=== PATIENT | female | born 1970 | race African-American/Black ===

== ENCOUNTER 2021-02-05 11:34 | Observation (INO) | payer OTHER, SELFPAY ==
[2021-02-05] VITALS (31 sets, daily range): BP systolic 109–182; BP diastolic 68–114; PULSE 73–96; RESP 12–23; TEMP 35.8–36.8; O2SAT 97–100; BMI 25.7
--- NOTE | ~2021-02-05 | XR_ITS ---
EXAMINATION: XR chest 2V DATE: 02/05/2021 12:16 INDICATION: Chest pain TECHNIQUE: PA and lateral views of the chest are obtained. COMPARISON: 07/29/2018 FINDINGS: The lungs are free of acute opacities. There is no pleural effusion or pneumothorax. The ca rdiomediastinal silhouette is normal. There is mild thoracic spondylosis. IMPRESSION: 1. No acute cardiopulmonary abnormality. Reviewed, dictated and finalized at location A. ECTIONAL FACILITY PSYCHIATRIST
--- NOTE | ~2021-02-05 | CT_ITS ---
EXAMINATION: CT brain wo con EXAM DATE: 02/05/2021 12:46 INDICATION: Left arm paresthesias. Hypertension and headache. TECHNIQUE: Spiral CT of the head was performed without contrast. Axial, coronal and sagittal images were reviewed. The dose-length product (DLP) for this examination was 681.00 mGy-cm. The exposure w as tailored according to patient size, and iterative reconstruction (ASIR) was used as additional dos e reduction technique. There is no prior study for comparison. FINDINGS: There is no acute intraparenchymal hemorrhage. No evidence of intraparenchymal brain mass lesion. No evidence of acute infarction. There is no mass effect or midline shift. The ventricles are normal in size. There are no extra-axial collections. There are no acute calvarial fractures. T he orbits are unremarkable. Soft tissue is unremarkable. The visualized sinuses and mastoid air sharan ls are well aerated. IMPRESSION: No acute intracranial findings. Reviewed, dictated and finalized at location B. FACTURING ASSOCIATE
--- NOTE | ~2021-02-05 | US_ITS ---
EXAMINATION: US retroperitoneal duplex ltd DATE: 02/06/2021 10:25 INDICATION: Hypertension. TECHNIQUE: Multiple grayscale, color Doppler, and pulsed Doppler images of the kidneys and renal jeri jamarcus were obtained. COMPARISON: None. FINDINGS: The aorta peak systolic velocity is 67 cm/s. The right renal artery peak systolic velocity is 58 cm/s in the proximal segment, 57 cm/s in the mid segment, and 60 cm/s in the distal segment. The left killian al artery peak systolic velocity is 57 cm/s in the proximal segment, 49 cm/s in the mid segment, and 50 cm/s in the distal segment. IMPRESSION: 1. No Doppler evidence of renal artery stenosis. Reviewed, dictated and finalized at location A. THESIOLOGY TECHNOLOGIST
--- NOTE | ~2021-02-05 | US_ITS ---
EXAMINATION: US renal BI DATE: 02/06/2021 10:25 INDICATION: Renal failure. TECHNIQUE: Multiple ultrasound grayscale images of the kidneys were obtained. COMPARISON: None. FINDINGS: The right kidney measures 10.3 x 5.4 x 5.6 cm. The left kidney measures 9.4 x 5.3 x 5.0 cm. The kidne ys demonstrate normal parenchymal echogenicity. There is no hydronephrosis. The bladder is normal. IMPRESSION: 1. Normal kidneys. No hydronephrosis. Reviewed, dictated and finalized at location A. L AIDE
--- NOTE | 2021-02-05 12:05 | ECG_ITS ---
Measurements Intervals [place] Rate: 96 P: 18 WV: 136 QRS: -72 QRSD: 89 T: -18 QT: 364 QTc: 461 Interpretive Statements SINUS RHYTHM INCOMPLETE RIGHT BUNDLE BRANCH BLOCK LEFT ANTERIOR FASCICULAR BLOCK T WAVE ABNORMALITY IN INFERIOR LEADS- CONSIDER ISCHEMIA BASELINE ARTIFACT- II, III, V6 ABNORMAL ECG Electronically Signed On 02-05-2021 12:34:28 PRINTER SLOTTER HELPER by Gary Ruiz D.O.
--- NOTE | 2021-02-05 12:38 | ED.CHESTPAIN ---
HPI - Chest Pain General Chief Complaint: Chest Pain Stated Complaint: CP ELEVATED BP Time Seen by Provider: 02/05/21 12:04 Source: patient Mode of arrival: ambulatory Limitations: no limitations History of Present Illness HPI narrative: This is a 50 year old female that presents to the ER for chest pain that started about an hour prior to arrival. Reports she works in a large [employer]. Reports she had to do a lot of walking this morning. Reports she noted that her blood pressures have been elevated today. She was watching this and they continued to climb. She started to note sharp chest pain that last about 20 minutes and was relieved without intervention. She was feeling a little short of breath. Also reports she had some paresthesias in the left arm which is now resolved as well. She is on several different antihypertensives. She took all of them this morning. Denies fever, cough, or lower extremity edema. Related Data Home Medications Medication Instructions Recorded Confirmed amlodipine 5 mg PO DAILY 02/05/21 aspirin [Aspir-81] 81 mg PO DAILY 02/05/21 atorvastatin 20 mg PO DAILY 02/05/21 carvedilol 25 mg PO BID 02/05/21 cholecalciferol (vitamin D3) 125 mcg PO DAILY 02/05/21 [Vitamin D3] clonidine HCl 0.2 mg PO BID 02/05/21 dulaglutide [Trulicity] 1.5 mg SUBCUT WEEKLY 02/05/21 esomeprazole magnesium 40 mg PO DAILY 02/05/21 hydrochlorothiazide 12.5 mg PO DAILY 02/05/21 linaclotide [Linzess] 290 mcg PO DAILY 02/05/21 lisinopril 40 mg PO DAILY 02/05/21 potassium chloride [KCl-20] 20 meq PO BID 02/05/21 spironolactone 25 mg PO BID 02/05/21 Allergies Allergy/AdvReac Type Severity Reaction Status Date / Time peanut Allergy Severe anaphylaxis Verified 02/05/21 11:47 Review of Systems Review of Systems: CONSTITUTIONAL: Denies fever CARDIOVASCULAR: Reports chest pain. Denies edema. RESPIRATORY: Reports dyspnea. Denies cough NEUROLOGIC: Denies headache, numbness, or weakness. All systems reviewed & are unremarkable except as noted in HPI and below PMFSH Past Medical History Medical History (Updated 02/05/21 @ 14:45 by Zita James PA-C) History of diabetes mellitus History of hyperlipidemia History of hypertension Social History Social History (Updated 02/05/21 @ 12:43 by Zita James PA-C) Smoking status: Never smoker Exam Narrative: GENERAL: Well-appearing, well-nourished, and in no acute distress. HEAD: Normocephalic, atraumatic. EYES: PERRLA and EOMI. ENT: Nares clear, no rhinorrhea or epistaxis. Mucous membranes moist. Oropharynx without tonsillar hypertrophy exudate or other lesions. Bilateral TMs pearly tamez non-bulging NECK: Supple. No adenopathy or masses. No carotid bruits or JVD CHEST: Clear to auscultation. No respiratory distress. No wheezes rales or rhonchi HEART: Regular rate and rhythm. No murmur heard. Normal peripheral pulses. EXTREMITIES: Normal range of motion. No edema. Strength equal in bilateral upper and lower extremities (5/5) SKIN: Warm, dry, no rash. NEURO: No focal deficits. Alert and oriented x3. Cranial nerves II through XII grossly PSYCH: Normal mood and affect Course Consultations Consultation #1: Spoke with hospitalist about patient and work-up who accepts admission Date: 02/05/21 Time: 14:30 Vital Signs Vital signs: Vital Signs Temperature 98.3 F 02/05/21 11:37 Pulse Rate 90 02/05/21 11:37 Respiratory Rate 20 02/05/21 11:37 Blood Pressure 182/114 H 02/05/21 11:37 Pulse Oximetry 100 02/05/21 11:37 Temperature 98.3 F 02/05/21 11:37 Pulse Rate 94 02/05/21 14:01 Respiratory Rate 15 02/05/21 14:01 Blood Pressure 139/103 H 02/05/21 14:00 Pulse Oximetry 99 02/05/21 14:01 MDM - Chest Pain MDM Narrative Medical decision making narrative: Patient presents to the ER for elevated blood pressure and chest pain. Had an episode of sharp chest pain this morning that was relieved before arrival to the ED. Also reportin
--- NOTE | 2021-02-05 12:44 | PC.NURSE ---
pt. in radiology unable to draw blood.
[2021-02-05 13:05] LABS: Basophils Absolute Auto 0.1 K/mm3 (0.0-0.1); Basophils Percent Auto 0.6 % (0.2-1.2); Eosinophils Absolute Auto 0.1 K/mm3 (0-0.3); Eosinophils Percent Auto 1.5 % (0-4.4); Hematocrit 40.3 % (37.0-47.0); Hemoglobin 13.5 g/dL (12.0-15.0); Immature Granulocyte Absolute 0.02 K/mm3 (0.00-0.031); Immature Granulocyte Percent A 0.2 % (0-0.5); Lymphocytes Absolute Auto 1.61 K/mm3 (0.9-3.2); Lymphocytes Percent Auto 18.5 % (18.3-44.2); Mean Corpuscular HGB Conc 33.5 g/dl (32-36); Mean Corpuscular Hemoglobin 30.5 pg (26-34); Mean Platelet Volume 10.5 fl (7.4-10.4); Monocytes Absolute Auto 0.5 K/mm3 (0.1-0.6); Monocytes Percent Auto 5.6 % (2.6-8.5); Neutrophils Absolute Auto 6.4 K/mm3 (1.3-6.7); Neutrophils Percent Auto 73.6 % (45.5-73.1); Platelet Count Result 210 k/mm3 (150-375); Red Blood Count 4.43 M/mm3 (4.2-5.4); Red Cell Distribution Width 11.7 % (11.5-14.5); White Blood Count 8.7 K/mm3 (4.5-10.0)
[2021-02-05 13:17] LABS: Alanine Aminotransferase 18 U/L (4-35); Albumin Level 5.2 g/dL (3.5-5.1); Alkaline Phosphatase 100 U/L (38-126); Anion Gap 15 mmol/L (8-16); Aspartate Amino Transferase 22 U/L (14-36); Bilirubin,Total 1.6 mg/dL (0.2-1.3); Blood Urea Nitrogen 27 mg/dL (7-17); Carbon Dioxide 29 mmol/L (22-30); Chloride 98 mmol/L (98-107); Estimated CRCL calculation 39 ml/min; Estimated Glomerular Filt Rate 52; Glucose 126 mg/dL (65-110); Lipase 62 U/L (23-300); Potassium 3.1 mmol/L (3.4-5.0); Sodium 142 mmol/L (137-145)
[2021-02-05 13:19] LABS: INR 0.9; Partial Thromboplastin Time 32.1 SECONDS (22.3-36.8); Prothrombin Time 12.5 Seconds (11.1-14.7)
[2021-02-05 13:28] LABS: Troponin I < 0.012 ng/mL (0.000-0.034)
[2021-02-05] MEDS: hydrALAZINE HCL 20 MG/ML VIAL 10 MG IV PUSH (13:54)
[2021-02-05] MEDS: POTASSIUM CHLORIDE 20 MEQ TABLET 40 MEQ PO (13:55)
[2021-02-05] MEDS: SODIUM CHLORIDE 0.9% IV 500 ML 999 ML IV CONT (13:55)
[2021-02-05] MEDS: ACETAMINOPHEN 500 MG TABLET 1000 MG PO (14:34)
[2021-02-05 15:40] LABS: Glucose Point of Care 103 mg/dl (65-105)
--- NOTE | 2021-02-05 16:28 | PC.NURSE ---
This patient, Mariangel Bazzi, was admitted to IMU Room 205-02. Patient/family oriented to hospital policies and general routines including ID bracelet, bed and alarms, visiting hours, pain management, procedures, bathroom and other care routines, personal items, smoking policy, room service/diet, and visiting hours. Information on how to activate the Rapid Response Team has been discussed. Patient/Family are encouraged to report perceived risks to care and to ask questions if they do not understand what they are told or what they should do.
[2021-02-05 16:47] LABS: Troponin I < 0.012 ng/mL (0.000-0.034)
[2021-02-05 17:09] LABS: Glucose Point of Care 139 mg/dl (65-105)
--- NOTE | 2021-02-05 18:30 | PM.IMHP ---
H&P: HPI History of Present Illness Date/Time: 02/05/21 18:30 Chief Complaint: Chest pain and elevated blood pressure. Narrative: This is a very pleasant 50-year-old female with hypertension, hyperlipidemia, and type 2 diabetes mellitus who presented to the emergency department earlier today via EMS from her place of employment for evaluation of chest pain and elevated blood pressure. Her blood pressures have been difficult to control and 1 point time they thought perhaps she had some sort of renal mass leading to secondary hypertension however that was removed and found to be benign. She is currently on 5 different antihypertensives and reports that her blood pressures are typically in the 140s systolic. She is diligent about monitoring her blood pressures and when they were elevated she typically gets a headache. When she checked her blood pressure this morning was 140/86 and she was feeling okay. Not long after arriving to work she felt as though her vision was blurry and notes that her blood pressure was 163/117 at that time. As the day progressed she developed a sharp pain in the mid chest region with associated aching and tingling in the left arm and at that time her blood pressure was 208/134. She received hydralazine 10 mg IV x1 in the ER and her blood pressures have since normalized. Aside from mild headache that she believes may be due to the precipitous drop in her blood pressure, she has no current complaints. She is not actively having chest pain. She also denies blurry vision, vertigo, focal weakness, paresthesias, shortness of breath, and edema. She has no history of coronary artery disease and reports having a normal stress test last year and an unremarkable cardiac catheterization several years ago. Review of Systems Review of Systems: Twelve systems were reviewed with pertinent positives and negatives as per HPI. No recent cold or flu symptoms. She denies vertigo. No nausea or vomiting. She suffers from constipation and is on Linzess. Except as documented, all other systems were reviewed and are negative. [facility] Past Medical History Medical History (Updated 02/05/21 @ 22:31 by Velma Ramos PA-C) Chronic kidney disease, stage 3 Hyperlipidemia Hypertension Type 2 diabetes mellitus Recent hemoglobin A1c was 7.1% per patient report. Surgical History Surgical History (Updated 02/05/21 @ 22:28 by Velma Ramos PA-C) History of section History of endometrial ablation History of partial nephrectomy Resection of a benign tumor. Family History Family History (Updated 02/05/21 @ 22:29 by Velma Ramos PA-C) Father Chronic obstructive pulmonary disease Diabetes mellitus Heart disease Mother Chronic obstructive pulmonary disease Diabetes mellitus Heart disease Sibling , at the age of 32. Congestive heart failure Diabetes mellitus Hypertension Social History Social History (Updated 02/05/21 @ 22:30 by Velma Ramos PA-C) Social History: The patient lives in [place] with her . They have 2 daughters, 1 who still lives at home. She is a lifelong nonsmoker. No alcohol or illicit substance abuse. She designates her King Bazzi as her surrogate decision maker and she wishes to be a full code. Meds Home Medications and Allergies Home Medications Medication Instructions Recorded Confirmed Type amlodipine 5 mg PO DAILY 02/05/21 02/05/21 History aspirin [Aspir-81] 81 mg PO DAILY 02/05/21 02/05/21 History atorvastatin 20 mg PO DAILY 02/05/21 02/05/21 History carvedilol 25 mg PO BID 02/05/21 02/05/21 History cholecalciferol (vitamin D3) 125 mcg PO DAILY 02/05/21 02/05/21 History [Vitamin D3] clonidine HCl 0.2 mg PO BID 02/05/21 02/05/21 History dapagliflozin-metformin [Xigduo XR] 1 tablet PO BID 02/05/21 02/05/21 History dulaglutide [Trulicity] 1.5 mg SUBCUT WEEKLY 02/05/21 02/05/21 History esomeprazole magnesium 40 mg PO DAILY
[2021-02-05 18:43] LABS: Troponin I < 0.012 ng/mL (0.000-0.034)
[2021-02-05 20:57] LABS: Glucose Point of Care 139 mg/dl (65-105)
[2021-02-05 23:50] LABS: Magnesium 1.7 mg/dL (1.6-2.3); Phosphorus 3.5 mg/dL (2.5-4.5)
[2021-02-05 23:54] LABS: Hemoglobin A1C 7.8 % (<5.7)
[2021-02-06] VITALS (11 sets, daily range): BP systolic 127–149; BP diastolic 81–95; PULSE 69–97; RESP 12–20; TEMP 36.4–37.1; O2SAT 98–100
[2021-02-06 07:50] LABS: Parathyroid Intact 33.8 pg/mL (7.5-53.5)
[2021-02-06 08:07] LABS: Vitamin D 25 Hydroxy 80.4 ng/mL
[2021-02-06 08:40] LABS: Albumin Level 4.7 g/dL (3.5-5.1); Anion Gap 14 mmol/L (8-16); Blood Urea Nitrogen 24 mg/dL (7-17); Carbon Dioxide 25 mmol/L (22-30); Chloride 101 mmol/L (98-107); Estimated CRCL calculation 39 ml/min; Estimated Glomerular Filt Rate 52; Glucose 122 mg/dL (65-110); Magnesium 1.7 mg/dL (1.6-2.3); Phosphorus 3.3 mg/dL (2.5-4.5); Potassium 3.1 mmol/L (3.4-5.0); Sodium 140 mmol/L (137-145)
[2021-02-06] MEDS: ATORVASTATIN 20 MG TABLET PO (09:00)
[2021-02-06] MEDS: lisinopriL 20 MG TABLET 40 MG PO (09:00)
[2021-02-06] MEDS: SPIRONOLACTONE 25 MG TABLET PO ×2 (09:00→17:31)
[2021-02-06] MEDS: cloNIDine HCL 0.2 MG TABLET PO ×2 (09:00→17:32)
[2021-02-06] MEDS: PANTOPRAZOLE 40 MG TABLET PO (09:01)
[2021-02-06] MEDS: amLODIPine BESYLATE 5 MG TABLET PO (09:01)
[2021-02-06 09:02] LABS: Glucose Point of Care 114 mg/dl (65-105)
[2021-02-06] MEDS: ASPIRIN 81 MG ENTERIC TABLET PO (09:02)
[2021-02-06] MEDS: carvediloL 25 MG TABLET PO ×2 (09:02→17:35)
[2021-02-06] MEDS: POTASSIUM CHLORIDE 20 MEQ PACKET (FOR LIQUID) PO ×2 (12:15→17:32)
[2021-02-06 12:24] LABS: Glucose Point of Care 191 mg/dl (65-105)
[2021-02-06] MEDS: ACETAMINOPHEN 325 MG TABLET 650 MG PO (15:28)
--- NOTE | 2021-02-06 17:30 | PM.DS ---
DS: Admitting Diagnosis Discharge Date 02/06/21 Admitting Diagnosis Chest pain DS: Discharge Diagnosis Discharge Diagnosis (1) Hypertensive urgency: Code(s): I16.0 - Hypertensive urgency Status: Acute (2) Chest pain: Qualifiers: Chest pain type: unspecified Qualified Code(s): R07.9 - Chest pain, unspecified Code(s): R07.9 - Chest pain, unspecified Status: Acute (3) Hypokalemia: Code(s): E87.6 - Hypokalemia Status: Acute (4) Hypercalcemia: Code(s): E83.52 - Hypercalcemia Status: Acute (5) Chronic kidney disease, stage 3: Code(s): N18.30 - Chronic kidney disease, stage 3 unspecified Status: Acute (6) Hyperlipidemia: Code(s): E78.5 - Hyperlipidemia, unspecified Status: Acute (7) Type 2 diabetes mellitus: Code(s): E11.9 - Type 2 diabetes mellitus without complications Status: Acute DS: Summary Hospital Course Reason for hospitalization: 50yo female with HTN and DM here for chest pain. Please see H&P for details Hospital Course: Patient has a long history of elevated blood pressure. She has a history of what sounds like left adrenalectomy mass but pathology was benign. While at work prior to admission showed a blood pressure 208/134 with associated chest pain. She presented to the emergency room here and was found have a blood pressure 182/114. She was given 1 dose of hydralazine. She has been compliant with her home medications. CBC was unremarkable. Potassium was low at 3.1 with BUN 27 and creatinine 1.3. Calcium was 11. Creatinine 2 years ago was 1.1. She also had elevated protein albumin to suggest dehydration. She was treated with IV fluids. Hydrochlorothiazide was held. Calcium level normalized. iPTH was normal. Troponin was negative x3. EKG showed incomplete right bundle-branch block with T-wave abnormalities in inferior leads. We have an old EKG from July 2018 which also shows T-wave changes in inferior leads. Suspect this finding was chronic. She has had a recent cardiac stress test about a year ago which was normal. Echocardiogram showed EF of 70% with grade 1 diastolic dysfunction. No significant valvular disease. Chest x-ray shows clear. CT of the brain showed no acute intracranial findings. Arterial Doppler showed no renal artery stenosis. Renal ultrasound was normal. Patient was resumed on her home medications. Blood pressure became better controlled. Chest pain resolved. It was felt that she had demand ischemia from the HTN. She is to follow-up with her doctor tomorrow and as such was felt that patient could be discharged home safely with close follow-up. She overall did well to be discharged home on 02/06/21. Status at Discharge Cognitive/behavioral status at discharge: stable Time Spent with Patient Time attestation: Total time spent providing and/or coordinating discharge services: 35 minutes Time spent: Greater than 30 minutes Exam Narrative: AF 98.4 138/95 78 14 98% ra Gen - NARD Chest - CTA bilaterally, nml RR CV - RRR S1/S2 2/6 systolic murmur RUSB without radiation Abd - Soft, NT/ND, Positive BS Ext - No pedal edema Neuro - Alert and oriented. Nonfocal exam. Psych - Nml mood and affect Skin - Warm and dry DS: Data Data Completed and Pending Labs on day of discharge: Labs from last 24 hours 02/06/21 02/06/21 02/06/21 11:56 07:51 07:15 Sodium Potassium Chloride Carbon Dioxide Anion Gap BUN Creatinine Estim Creat Clear Calc Estimated GFR Glucose POC Capillary Glucose 191 H 114 H Hemoglobin A1c Calcium Ionized Calcium [place] Phosphorus Magnesium Troponin I Total Protein Albumin Fhqsj-3-Pzyjyodle Fgedk-2-Ppempedua Mpsx-1-Jeqdyqpx Pvxj-8-Usxsawuj Gamma Globulins Abnorm Protein Band 1 Abnorm Protein Band 3 PEP Interpretation Angiotensin Convert Enz Vitamin D
[2021-02-06 17:36] LABS: Glucose Point of Care 110 mg/dl (65-105)
[2021-02-06] MEDS: POTASSIUM CHLORIDE 20 MEQ PACKET (FOR LIQUID) 40 MEQ PO (17:57)
--- NOTE | 2021-02-06 22:35 | ECHO_ITS ---
Patient Info Name: Mariangel Bazzi Age: 50 years : 1970 Gender: Female Ht: 64 in Wt: 146 lbs BSA: 1.74 m2 HR: 93 bpm BP: 148 / 86 mmHg Heart Rhythm: Sinus Rhythm Technical Quality: Good Exam Date: 02/06/2021 8:56 AM Exam Location: [facility] Pulmonary Patient Status: Outpatient Admit Date: 02/05/2021 Staff Ordering Physician: Velma Ramos PA-C Addictions Therapist: Attending Provider: Pascual Herron MD Referring Physician: Richard WASSERMAN; Exam Type: CA echo doppler color flow Study Info Indications - HTN R07.9 - Chest pain, unspecified Complete two-dimensional, color flow and Doppler transthoracic echocardiogram is performed. Summary 1. Complete two-dimensional, color flow and Doppler transthoracic echocardiogram is performed. 2. Left ventricular chamber dimension is normal. 3. Left ventricular systolic function is hyperdynamic, estimated at >70%. 4. There is moderately increased left ventricular wall thickness. 5. The left ventricular diastolic function is grade I diastolic dysfunction. 6. There is trace tricuspid valve regurgitation. 7. No pulmonary hypertension, estimated pulmonary arterial systolic pressure is 14 mmHg. 8. There is trace mitral valve regurgitation. Left Ventricle Left ventricular chamber dimension is normal. Left ventricular systolic function is hyperdynamic, estimated at >70%. There is moderately increased left ventricular wall thickness. The left ventricular diastolic function is grade I diastolic dysfunction. Right Ventricle Right ventricular chamber dimension is normal. Right ventricular systolic function is normal. Left Atria Left atrial chamber dimension is normal. Right Atria Right atrial chamber dimension is normal. Aortic Valve The aortic valve is not well visualized. There is no aortic valve stenosis. There is no aortic valve regurgitation. Pulmonic Valve The pulmonic valve is not well visualized. Mitral Valve The mitral valve has normal leaflets and thickened leaflets. There is trace mitral valve regurgitation. Tricuspid Valve The tricuspid valve leaflets are normal. There is trace tricuspid valve regurgitation. No pulmonary hypertension, estimated pulmonary arterial systolic pressure is 14 mmHg. Pericardium/Pleural The pericardium appears normal. There is no pericardial effusion. Inferior Vena Cava Normal inferior vena cava with >50% collapse upon inspiration consistent with normal right atrial pressure, 5 mmHg. Aorta The aortic root size at the sinus of Valsalva is normal. There is mild aortic atherosclerosis. Left Ventricular Outflow Tract Name Value Normal LVOT 2D LVOT Diameter 1.9 cm LVOT Doppler LVOT Peak Gradient 4 mmHg LVOT Mean Gradient 2 mmHg LVOT VTI 25 cm LVOT VTI/AV VTI Ratio 0.8 LVOT Stroke Volume 73 ml LVOT CO 12.6 l/min LVOT CI 7.3 l/min/m2 Pulmonic Valve
[2021-02-10 07:35] LABS: Ionized Calcium 5.5 mg/dL (4.8-5.6)
[2021-02-10 19:58] LABS: Albumin 4.7 g/dL (3.8-4.8); Alpha 1 Globulin 0.2 g/dL (0.2-0.3); Alpha 2 Globulin 0.7 g/dL (0.5-0.9); Beta 1 Globulin 0.5 g/dL (0.4-0.6); Gamma Globulin 1.3 g/dL (0.8-1.7); Protein, Total 7.7 g/dL (6.1-8.1)
[2021-02-10 23:58] LABS: Vitamin D 1,25 (OH)2 Total 31 pg/mL (18-72); Vitamin D2 1,25 (OH)2 <8 pg/mL; Vitamin D3 1,25 (OH)2 31 pg/mL
[2021-02-11 13:09] LABS: Angiotensin Converting Enzyme <5 U/L (9-67)
[2021-02-14 17:21] LABS: Parathyroid Hormone Related Pr 10 pg/mL (11-20)
--- NOTE | 2021-02-17 13:41 | PC.NURSE ---
ACD is low at <5 iCa is WNL at 5.5 PTHrp is low at 10 Dr. Herron aware. REsults faxed to Dr. Siddiqui
== END 2021-02-06 18:20 | disposition home or self-care (01) ==
LOC: ANHED 14:45 → ANHIMU 16:16
PROVIDERS: Physician Assistant; Admitting Provider Internal Medicine; Emergency Provider Emergency Medicine; PCP Internal Medicine; Visit Provider Internal Medicine
DX: I16.0 Hypertensive urgency (principal); R07.9 Chest pain, unspecified; R06.02 Shortness of breath; E83.52 Hypercalcemia; E87.6 Hypokalemia; I12.9 Hypertensive chronic kidney disease with stage 1 through stage 4 chronic kidney disease, or unspecified chronic kidney disease; E11.22 Type 2 diabetes mellitus with diabetic chronic kidney disease; N18.30 Chronic kidney disease, stage 3 unspecified; E78.5 Hyperlipidemia, unspecified; Z79.82 Long term (current) use of aspirin; Z79.899 Other long term (current) drug therapy
CPT/HCPCS: 36415; 70450; 71046; 76775; 80053; 80069; 82164; 82306; 82330; 82652; 82948; 83036; 83519; 83690; 83735; 83970; 84100; 84155; 84165; 84443; 84484; 85025; 85610; 85730; 93005; 93306; 93976; 96361; 96374; 99285; A9270; G0378; J0360; J7040